=== PATIENT | female | born 1960 | race Caucasian/White ===

== ENCOUNTER 2023-11-17 14:05 | Outpatient (CLI) | payer MEDICAID | END 2023-11-17 23:59 | disposition home or self-care (01) | LOC: RAD 14:05 | PROVIDERS: ATTEND Family Medicine | DX: M85.842 Other specified disorders of bone density and structure, left hand (principal); M85.841 Other specified disorders of bone density and structure, right hand; M19.041 Primary osteoarthritis, right hand; M19.042 Primary osteoarthritis, left hand; M79.641 Pain in right hand; R20.0 Anesthesia of skin | CPT/HCPCS: 73130 ==